=== PATIENT | female | born 2000 | race Caucasian/White ===

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

== ENCOUNTER → 2018-05-10 | Outpatient (CLI) | payer BC ==
[2018-05-10 13:50] LABS: BASO # 0.1 10^3/uL (0.0-0.2); BASO % 0.8 % (0.0-1.0); EOS # 0.2 10^3/uL (0.0-0.50); EOS % 2.6 % (0.0-3.0); HEMATOCRIT 41.3 % (36.0-47.0); HEMOGLOBIN 14.2 g/dl (12.0-15.5); LYMPH # 2.2 10^3/uL (1.5-6.5); LYMPH % 23.7 % (24.0-44.0); MEAN CORPUSCULAR HEMOGLOBIN 29.6 pg (27.0-33.0); MEAN CORPUSCULAR HGB CONC 34.4 g/dl (32.0-36.5); MONO # 0.8 10^3/uL (0.0-0.8); MONO % 8.5 % (0.0-5.0); NEUTROPHILS # 5.8 10^3/uL (1.8-7.7); PLATELET COUNT, AUTOMATED 247 10^3/uL (150-450); WHITE BLOOD COUNT 9.1 10^3/uL (4.0-10.0)
[2018-05-10 14:42] LABS: HIV 1&2 SCREEN CENTAUR NEGATIVE (NEGATIVE); RUBELLA IgG QUALITATIVE IMMUNE (IMMUNE)
[2018-05-10 15:19] LABS: CHLAMYDIA DNA AMPLIFICATION NEGATIVE (NEGATIVE); GC DNA AMPLIFICATION NEGATIVE (NEGATIVE)
== END ==
LOC: M SMT 09:28
PROVIDERS: ATTEND Advanced Practice Midwife
DX: Z34.01 Encounter for supervision of normal first pregnancy, first trimester (principal); Z36.89 Encounter for other specified antenatal screening

== ENCOUNTER 2018-05-22 19:27 | Emergency (ER) | payer BC, OTHER ==
[~2018-05-22] VITALS: Ht 157.5 cm; Wt 50.0 kg
[2018-05-22 22:37] LABS: BASO # 0.1 10^3/uL (0.0-0.2); BASO % 0.7 % (0.0-1.0); EOS # 0.1 10^3/uL (0.0-0.50); EOS % 0.8 % (0.0-3.0); HEMATOCRIT 39.6 % (36.0-47.0); HEMOGLOBIN 14.3 g/dl (12.0-15.5); LYMPH # 1.6 10^3/uL (1.5-6.5); LYMPH % 18.7 % (24.0-44.0); MEAN CORPUSCULAR HEMOGLOBIN 30.2 pg (27.0-33.0); MEAN CORPUSCULAR HGB CONC 36.1 g/dl (32.0-36.5); MEAN CORPUSCULAR VOLUME 83.5 fl (80.0-96.0); MONO # 0.6 10^3/uL (0.0-0.8); MONO % 6.6 % (0.0-5.0); NEUTROPHILS # 6.4 10^3/uL (1.8-7.7); PLATELET COUNT, AUTOMATED 192 10^3/uL (150-450); RED BLOOD COUNT 4.74 10^6/uL (4.00-5.40); WHITE BLOOD COUNT 8.8 10^3/uL (4.0-10.0)
[2018-05-22 23:07] LABS: INFLUENZA A AMPLIFICATION NEGATIVE (NEGATIVE); INFLUENZA B AMPLIFICATION NEGATIVE (NEGATIVE)
[2018-05-22 23:35] LABS: ALBUMIN 3.9 GM/DL (3.2-5.2); ALT/SGPT 14 U/L (12-78); BILIRUBIN,DIRECT 0.3 MG/DL (0.0-0.2); BILIRUBIN,TOTAL 0.8 MG/DL (0.2-1.0); BLOOD UREA NITROGEN 6 MG/DL (7-18); CARBON DIOXIDE LEVEL 20 MEQ/L (21-32); CHLORIDE LEVEL 107 MEQ/L (98-107); CREATININE FOR GFR 0.55 MG/DL (0.55-1.30); GLUCOSE, FASTING 72 MG/DL (70-100); POTASSIUM SERUM 3.4 MEQ/L (3.5-5.1); SODIUM LEVEL 138 MEQ/L (136-145); THYROID STIMULATING HORMONE 0.175 uIU/ML (0.463-3.98); TOTAL PROTEIN 6.8 GM/DL (6.4-8.2)
[2018-05-23 01:59] LABS: FREE T4 1.76 NG/DL (0.78-1.33)
[2018-05-23 04:34] VITALS: BP 125/79
[2018-05-23 05:35] LABS: FREE T3 2.9 PG/ML (2.9-4.5)
--- NOTE | 2018-05-23 22:02 | ECGEPIP ---
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
[2018-05-24 10:24] LABS: THYROID PEROXIDASE ANTIBODY 66.2 U/ML (<60.0)
== END 2018-05-23 04:43 | disposition home or self-care (01) ==
LOC: M ED 19:27
DX: O99.89 Other specified diseases and conditions complicating pregnancy, childbirth and the puerperium (principal); E05.90 Thyrotoxicosis, unspecified without thyrotoxic crisis or storm; R00.0 Tachycardia, unspecified; Z3A.10 10 weeks gestation of pregnancy; Z88.0 Allergy status to penicillin

== ENCOUNTER 2018-09-29 07:22 | Emergency (ER) | payer BC ==
[~2018-09-29] VITALS: Ht 157.5 cm; Wt 59.0 kg
[2018-09-29] MEDS ORDERED: ZOFR4TAB16 PO (07:42)
[2018-09-29 09:42] LABS: BASO # 0.1 10^3/uL (0.0-0.2); BASO % 0.5 % (0.0-1.0); EOS # 0.1 10^3/uL (0.0-0.50); EOS % 1.3 % (0.0-3.0); HEMATOCRIT 36.7 % (36.0-47.0); HEMOGLOBIN 12.9 g/dl (12.0-15.5); LYMPH # 1.8 10^3/uL (1.5-6.5); LYMPH % 16.5 % (24.0-44.0); MEAN CORPUSCULAR HEMOGLOBIN 31.4 pg (27.0-33.0); MEAN CORPUSCULAR HGB CONC 35.1 g/dl (32.0-36.5); MEAN CORPUSCULAR VOLUME 89.3 fl (80.0-96.0); MONO # 0.9 10^3/uL (0.0-0.8); MONO % 8.1 % (0.0-5.0); NEUTROPHILS # 7.8 10^3/uL (1.8-7.7); NEUTROPHILS % 72.7 % (36.0-66.0); PLATELET COUNT, AUTOMATED 233 10^3/uL (150-450); RED BLOOD COUNT 4.11 10^6/uL (4.00-5.40); WHITE BLOOD COUNT 10.7 10^3/uL (4.0-10.0)
[2018-09-29] MEDS ORDERED: NS 1,000 ML IV ONE (09:45)
[2018-09-29 10:21] LABS: BLOOD UREA NITROGEN 7 MG/DL (7-18); CALCIUM LEVEL 8.6 MG/DL (8.5-10.1); CARBON DIOXIDE LEVEL 24 MEQ/L (21-32); CHLORIDE LEVEL 109 MEQ/L (98-107); CREATININE FOR GFR 0.52 MG/DL (0.55-1.30); FREE T4 1.17 NG/DL (0.78-1.33); GLUCOSE, FASTING 75 MG/DL (70-100); POTASSIUM SERUM 3.8 MEQ/L (3.5-5.1); SODIUM LEVEL 140 MEQ/L (136-145)
[2018-09-29 11:15] VITALS: BP 120/66
[2018-09-29] MEDS ORDERED: KEFL500C17 PO (11:57)
--- NOTE | 2018-09-30 08:02 | ECGEPIP ---
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
== END 2018-09-29 12:05 | disposition home or self-care (01) ==
LOC: M ED 07:22
DX: O99.89 Other specified diseases and conditions complicating pregnancy, childbirth and the puerperium (principal); R20.2 Paresthesia of skin; R82.71 Bacteriuria; Z88.0 Allergy status to penicillin; Z3A.29 29 weeks gestation of pregnancy

== ENCOUNTER → 2018-10-04 | Outpatient (CLI) | payer BC ==
[~2018-10-04] MED LIST: KEFL500C17 PO; ZOFR4TAB16 PO
[2018-10-04 14:54] LABS: FREE T4 1.05 NG/DL (0.78-1.33); THYROID STIMULATING HORMONE 1.32 uIU/ML (0.463-3.98)
[2018-10-04 14:58] LABS: HEMATOCRIT 35.7 % (36.0-47.0); MEAN CORPUSCULAR HEMOGLOBIN 29.6 pg (27.0-33.0); MEAN CORPUSCULAR HGB CONC 33.6 g/dl (32.0-36.5); MEAN CORPUSCULAR VOLUME 88.1 fl (80.0-96.0); PLATELET COUNT, AUTOMATED 254 10^3/uL (150-450); RED BLOOD COUNT 4.05 10^6/uL (4.00-5.40); WHITE BLOOD COUNT 9.9 10^3/uL (4.0-10.0)
== END ==
LOC: M SMT 10:32
PROVIDERS: ATTEND Obstetrics & Gynecology
DX: Z34.02 Encounter for supervision of normal first pregnancy, second trimester (principal); Z3A.00 Weeks of gestation of pregnancy not specified

== ENCOUNTER → 2018-11-23 | Outpatient (REF) | payer BC | LOC: M LAB REF 16:44 | PROVIDERS: ATTEND Obstetrics & Gynecology | DX: Z36.85 Encounter for antenatal screening for Streptococcus B (principal) ==

== ENCOUNTER 2018-12-08 20:56 | Outpatient (CLI) | payer BC ==
[~2018-12-08] VITALS: Ht 157.5 cm; Wt 68.8 kg
[2018-12-08 21:07] VITALS: BP 131/86
--- NOTE | 2018-12-08 21:31 | IPNPDOC ---
Text Note Date of Service The patient was seen on 12/08/18. NOTE Outpatient 18 yo G1 STEFANIE 12/15/18 presents @ 39 wks with complaints of pelvic pressure. Denies regular UC. Reports light spotting. Cat I tracing Irregular UC SVE 3, unchanged from yesterday in office Reassured. Discharged home. Routine precautions. Keep appt next week Miesha Hendrix CNM Dec 08, 2018 21:31
== END 2018-12-08 21:35 | disposition home or self-care (01) ==
LOC: M LDO 20:56
PROVIDERS: ATTEND Advanced Practice Midwife
DX: O26.853 Spotting complicating pregnancy, third trimester (principal); O26.893 Other specified pregnancy related conditions, third trimester; R10.30 Lower abdominal pain, unspecified; Z3A.39 39 weeks gestation of pregnancy
CPT/HCPCS: 59025; G0378; G0463

== ENCOUNTER 2018-12-20 14:59 | Inpatient (IN) | payer BC ==
[2018-12-20] VITALS (28 sets, daily range): BP systolic 113–163; BP diastolic 57–91
[~2018-12-20] VITALS: Ht 157.5 cm; Wt 68.8 kg
[2018-12-20] MEDS ORDERED: LACTATED RINGER'S 1000 ML IV STA (16:32)
[2018-12-20] MEDS ORDERED: BUTORPHANOL 2 MG/ML INJ (J0595) IV ONE (16:45)
[2018-12-20] MEDS ORDERED: PROMETHAZINE INJ 25 MG/ML VIAL (J2550) IV ONE (16:45)
--- NOTE | 2018-12-20 17:04 | HPE ---
DATE OF ADMISSION: 12/20/2018 Skylar is a 18-year-old 1 para 0 at 40-5/7 weeks gestation, EDC of 12/15/2018 based on last normal menstrual period confirmed by first trimester ultrasound. She presents to labor and delivery today with complaint of painful contractions that started approximately at 0200 and have progressively become closer together and much more uncomfortable. She denies any vaginal bleeding and leakage of fluid. The fetus has been active. The care was initiated at [facility] in the first trimester. course has been uncomplicated. OBSTETRIC HISTORY: Primigravida. OBSTETRIC LABS: A+, antibody screen negative, rubella immune, VDRL nonreactive. Urine culture no growth. Hep B surface antigen negative, HIV negative. Hep C antibody nonreactive. Gonorrhea and chlamydia negative. She did not have genetic serum screening labs drawn. Gestational diabetic screening normal at 122 and her GBS is negative. PAST MEDICAL HISTORY: No chronic medical conditions. PAST SURGICAL HISTORY: Tympanostomy FAMILY HISTORY: Diabetes. Asthma. SOCIAL HISTORY: The patient is single. The father of the baby is at bedside and supportive. She is a nonsmoker. Denies alcohol and drug use. No history of any sexually transmitted infections and denies history of abuse physical, sexual and emotional. ALLERGIES: Amoxicillin. CURRENT MEDICATIONS: vitamin and Zofran as needed. OBJECTIVE: Temperature 93, pulse 83, respirations 18, BP is 121/68. She is alert and oriented times three. She is tense and scowling with her contractions. heart rate is 130 with moderate variability, positive accelerations. There is an isolated variable deceleration and occasional rate decelerations. Contractions were every 4-7 minutes. They do palpate moderate to her abdomen is gravid, cephalic presentation. Estimated weight 7-1/2 pounds. Sterile vaginal exam 2-3 cm dilated 90% effaced, minus two station. There is no show with the exam. ASSESSMENT: Intrauterine at 40 and 5/7 weeks labor. PLAN: Admit the patient to labor and labor and delivery. Routine labs of bed ad lazara with IV fluid bolus at this time and saline lock. The patient is requesting IV pain medications for therapeutic rest at this time. If labor stones will augment her labor with IV Pitocin. The patient and planning an epidural when she is more uncomfortable. I did review risks, benefits, and alternatives. The patient and her partner have had their questions answered. She has been verbally consented for emergency surgery and blood products if necessary.
[2018-12-20 17:05] LABS: HEMOGLOBIN 12.4 g/dl (12.0-15.5); MEAN CORPUSCULAR HEMOGLOBIN 28.7 pg (27.0-33.0); MEAN CORPUSCULAR HGB CONC 33.5 g/dl (32.0-36.5); MEAN CORPUSCULAR VOLUME 85.6 fl (80.0-96.0); PLATELET COUNT, AUTOMATED 212 10^3/uL (150-450); RED BLOOD COUNT 4.32 10^6/uL (4.00-5.40); WHITE BLOOD COUNT 12.1 10^3/uL (4.0-10.0)
[2018-12-20] MEDS ORDERED: LR 1,000 ML IV SCH (19:55)
[2018-12-20] MEDS ORDERED: OXYTOCIN DRIP 30 UNITS in IV 1 EA IV SCH (20:00)
[2018-12-20] MEDS ORDERED: OXYTOCIN 30 UNITS IN 0.9% NaCl 500ML IV BAG (J2590) As Ordered ONE (20:01)
[2018-12-20] MEDS ORDERED: FENTANYL 2MCG/ML ROPIVACAINE 0.2% IN 0.9% NACL 100ML IVBAG As Ordered ONE (21:15)
[2018-12-20] MEDS ORDERED: ePHEDrine SULFATE 25 MG/5 ML(5MG/ML) SYRINGE As Ordered ONE (23:04)
[2018-12-20] MEDS ORDERED: REFRIGERATOR IV KEYS XX PRN (23:15)
[2018-12-20] MEDS ORDERED: NALOXONE INJ 0.4 MG/1 ML VIAL (J2310) IV PRN (23:15)
[2018-12-20] MEDS ORDERED: EPIDURAL COMMENT XX SCH (23:15)
[2018-12-20] MEDS ORDERED: diphenhydrAMINE INJ 50MG/ML VIAL (J1200) IV PRN (23:15)
[2018-12-20] MEDS ORDERED: FENTANYL/ROPIVACAINE/NACL BAG 100 ML EPIDURAL SCH (23:15)
[2018-12-20] MEDS ORDERED: ONDANSETRON 4MG/2ML VIAL (J2405) IV PRN (23:15)
[2018-12-20] MEDS ORDERED: ePHEDrine SULFATE 25 MG/5 ML(5MG/ML) SYRINGE IV PRN (23:15)
[2018-12-20] MEDS ORDERED: EPIDURAL/PCA KEYS XX PRN (23:15)
[2018-12-21] VITALS (8 sets, daily range): BP systolic 124–141; BP diastolic 67–88
[2018-12-21] MEDS ORDERED: OXYTOCIN DRIP 30 UNITS in IV 1 EA IV SCH (01:29)
[2018-12-21] MEDS ORDERED: IBUPROFEN 600 MG TAB PO PRN (01:30)
[2018-12-21] MEDS ORDERED: DIBUCAINE 1% OINTMENT 30GM TOP PRN (01:30)
[2018-12-21] MEDS ORDERED: RHOGAM 300 MCG (1500 IU) INJ (J2790) IM SCH (01:30)
[2018-12-21] MEDS ORDERED: ACETAMINOPHEN 500 MG TAB PO PRN (01:30)
[2018-12-21] MEDS ORDERED: METHYLERGONOVINE MALEATE 0.2 MG TAB PO PRN (01:30)
[2018-12-21] MEDS ORDERED: ACETAMINOPHEN TAB 650MG DOSE (2X325MG) PO PRN (01:30)
[2018-12-21] MEDS ORDERED: MEASLES,MUMPS,RUBELLA VACCINE INJ (MMR-II) (90707) SC SCH (01:30)
[2018-12-21] MEDS ORDERED: DOCUSATE SODIUM 100 MG CAP PO PRN (01:30)
[2018-12-21] MEDS: IBUPROFEN 800 MG TAB PO PRN ×2 (03:22→21:12)
--- NOTE | 2018-12-21 06:49 | DN ---
DATE: 12/21/2018 Skylar is a 18-year-old, 1, para 1-0-0-1 now, who was admitted to labor and delivery in active labor. She utilized IV pain medications and an epidural for her labor coping. She did have IV Pitocin to augment her labor. She had spontaneous rupture of membranes for clear fluid at 2310. She was fully dilated at 2351. She pushed to a normal spontaneous vaginal delivery of a live female in occiput anterior (OA) position with restitution to left occiput transverse (LOT) position at 0022. There was no nuchal cord. The shoulders delivered spontaneously and the corpus immediately followed. The was placed on maternal abdomen crying and active. Her mouth and nares were bulb suctioned. The cord was clamped times two once the pulsations ceased and cut by the father of the baby under my direction. Cord blood was obtained. Spontaneous expulsion of an intact placenta with three-vessel cord by Quintanilla mechanism was at 0026. Uterine hemostasis was achieved with IV Pitocin rapid infusion and uterine fundal massage. Estimated blood loss 400 mL. Perineum and vagina inspected and noted to have a second-degree midline vaginal laceration as well as bilateral labial lacerations. The lacerations were repaired under epidural anesthesia with #3-0 Rapide in the usual fashion. The female weighed 6 pounds 4 ounces, 2840 grams, Apgars 9 and 9. Mom is going to bottle feed her daughter and the family have named her Lizzie. At the close of delivery, lap counts, needle counts and instrument counts were correct and verified.
[2018-12-21] MEDS ORDERED: ADACEL/BOOSTRIX VACCINE (DIPHTH/PERTUSS/ACELL/TETANUS)0.5ML SYR (90715) IM ONE (09:00)
[2018-12-21] MEDS: PRENATAL VITAMINS CHEWABLE TABLET PO SCH (11:59)
[2018-12-22 06:00] VITALS: BP 118/76
[2018-12-22] MEDS: PRENATAL VITAMINS CHEWABLE TABLET PO SCH (09:58)
== END 2018-12-22 18:40 | disposition home or self-care (01) | DRG 560 ==
LOC: M LDO 14:59 → M LDI 16:29 → M OBS 12-21 03:14
PROVIDERS: ADMIT Advanced Practice Midwife; ATTEND Advanced Practice Midwife
PROC: 10E0XZZ Delivery of Products of Conception, External Approach (ICD-10-PCS; principal; 2018-12-21)
PROC: 0HQ9XZZ Repair Perineum Skin, External Approach (ICD-10-PCS; 2018-12-21)
DX: O48.0 Post-term pregnancy (principal); O70.0 First degree perineal laceration during delivery; Z37.0 Single live birth; Z3A.40 40 weeks gestation of pregnancy

== ENCOUNTER → 2019-11-08 | Outpatient (CLI) | payer BC, OTHER, SELFPAY | LOC: M LAB 15:30 | PROVIDERS: ATTEND Obstetrics & Gynecology | DX: Z32.00 Encounter for pregnancy test, result unknown (principal) ==

== ENCOUNTER → 2020-03-07 | Outpatient (REF) | payer OTHER ==
[2020-03-07 17:24] LABS: HEMATOCRIT 41.9 % (36.0-47.0); HEMOGLOBIN 13.7 g/dl (12.0-15.5); MEAN CORPUSCULAR HEMOGLOBIN 28.1 pg (27.0-33.0); MEAN CORPUSCULAR HGB CONC 32.7 g/dl (32.0-36.5); MEAN CORPUSCULAR VOLUME 85.9 fl (80.0-96.0); PLATELET COUNT, AUTOMATED 266 10^3/uL (150-450); RED BLOOD COUNT 4.88 10^6/uL (4.00-5.40); WHITE BLOOD COUNT 8.5 10^3/uL (4.0-10.0)
[2020-03-07 18:23] LABS: HEPATITIS C VIRUS ABY INDEX < 0.0 INDEX (<0.8); HIV 1&2 SCREEN CENTAUR NEGATIVE (NEGATIVE)
[2020-03-07 19:58] LABS: CHLAMYDIA DNA AMPLIFICATION NEGATIVE (NEGATIVE); GC DNA AMPLIFICATION NEGATIVE (NEGATIVE)
== END ==
LOC: M PLALAB 15:23
PROVIDERS: ATTEND Advanced Practice Midwife
DX: Z34.81 Encounter for supervision of other normal pregnancy, first trimester (principal)

== ENCOUNTER → 2020-05-23 | Outpatient (CLI) | payer OTHER ==
--- NOTE | 2020-05-23 16:23 | REP ---
INDICATION: ANATOMY. COMPARISON: None. TECHNIQUE: Multiple sonographic images of the gravid uterus. FINDINGS: There is a single intrauterine gestation in a breech presentation. The placenta is posterior, grade 0 maturity with no previa. The cervix measures 3.2 cm. The umbilical cord inserts centrally on the placenta. There is a three-vessel cord. The cord insertion is unremarkable. The heart rate is 146 beats per minute. Subjectively the amniotic fluid volume appears normal. The ultrasound gestational age by today's measurements is 20 weeks 0 days with an STEFANIE of 10/10/2020. The LMP is unknown. weight is 343 g that corresponds to 0 lb, 12 oz. This is the 53rd percentile for 20 weeks 1 day. The following anatomic structures are identified and are unremarkable: Cranium, cavum septum pellucidum, falx, intracranial ventricles, choroid plexus, cerebellum, cisterna magna, nuchal fold, facial profile, upper lip, cardiac right ventricular outflow tract, diaphragm, stomach, abdominal wall, right left kidneys, bladder, spine, right and left upper extremities, right left lower extremities and 3 vessel cord. Suboptimally demonstrated because of position are cardiac rhythm, four-chamber view of the heart and cardiac left ventricular outflow tract. A follow-up study dedicated to the structures might be considered. IMPRESSION: dating, weight and anatomy as discussed above. A follow-up study dedicated to the structures not optimally demonstrated today might be considered. <Electronically signed by Luis Manuel Lowery > 05/23/20 [id number]
== END ==
LOC: M WHC 14:23
PROVIDERS: ATTEND Advanced Practice Midwife
DX: Z34.92 Encounter for supervision of normal pregnancy, unspecified, second trimester (principal); Z3A.20 20 weeks gestation of pregnancy

== ENCOUNTER → 2020-07-03 | Outpatient (REF) | payer OTHER ==
[2020-07-03 14:01] LABS: HEMATOCRIT 38.6 % (36.0-47.0); HEMOGLOBIN 12.5 g/dl (12.0-15.5); MEAN CORPUSCULAR HEMOGLOBIN 29.1 pg (27.0-33.0); MEAN CORPUSCULAR HGB CONC 32.4 g/dl (32.0-36.5); MEAN CORPUSCULAR VOLUME 89.8 fl (80.0-96.0); PLATELET COUNT, AUTOMATED 265 10^3/uL (150-450)
== END ==
LOC: M PLALAB 09:47
PROVIDERS: ATTEND Advanced Practice Midwife
DX: Z34.92 Encounter for supervision of normal pregnancy, unspecified, second trimester (principal); Z3A.00 Weeks of gestation of pregnancy not specified

== ENCOUNTER → 2020-09-08 | Outpatient (REF) | payer OTHER | LOC: M SFHCWAGY 16:55 | PROVIDERS: ATTEND Advanced Practice Midwife | DX: Z34.93 Encounter for supervision of normal pregnancy, unspecified, third trimester (principal) ==

== ENCOUNTER 2020-10-07 02:51 | Inpatient (IN) | payer OTHER ==
[2020-10-07] VITALS (33 sets, daily range): BP systolic 98–149; BP diastolic 54–81
[~2020-10-07] VITALS: Ht 157.5 cm; Wt 74.1 kg
[2020-10-07] MEDS ORDERED: LACTATED RINGER'S 1000 ML IV STA (03:18)
[2020-10-07] MEDS ORDERED: OXYTOCIN INJ 10 UNITS/ML VIAL (J2590) IM PRN (03:20)
[2020-10-07] MEDS ORDERED: LR 1,000 ML IV SCH (03:20)
[2020-10-07] MEDS ORDERED: OXYTOCIN DRIP 30 UNITS in IV 1 EA IV SCH (03:20)
[2020-10-07] MEDS ORDERED: OXYTOCIN DRIP 30 UNITS in IV 1 EA IV PRN ×4 (03:20)
[2020-10-07] MEDS ORDERED: METHYLERGONOVINE MALEATE 0.2 MG/ML VIAL (J2210) IM PRN (03:20)
[2020-10-07] MEDS ORDERED: LIDOCAINE 1% MDV 20ML VIAL INFIL PRN (03:20)
[2020-10-07 03:42] LABS: HEMATOCRIT 35.9 % (36.0-47.0); HEMOGLOBIN 11.7 g/dl (12.0-15.5); MEAN CORPUSCULAR HEMOGLOBIN 26.2 pg (27.0-33.0); MEAN CORPUSCULAR HGB CONC 32.6 g/dl (32.0-36.5); MEAN CORPUSCULAR VOLUME 80.3 fl (80.0-96.0); PLATELET COUNT, AUTOMATED 265 10^3/uL (150-450); RED BLOOD COUNT 4.47 10^6/uL (4.00-5.40); WHITE BLOOD COUNT 7.7 10^3/uL (4.0-10.0)
[2020-10-07] MEDS ORDERED: FENTANYL 2MCG/ML ROPIVACAINE 0.2% IN 0.9% NACL 100ML IVBAG As Ordered ONE (04:30)
[2020-10-07] MEDS ORDERED: NALOXONE INJ 0.4MG/1ML VIAL (J2310 PER 1MG) IV PRN (05:40)
[2020-10-07] MEDS ORDERED: EPIDURAL COMMENT XX SCH (05:40)
[2020-10-07] MEDS ORDERED: REFRIGERATOR IV KEYS XX PRN (05:40)
[2020-10-07] MEDS ORDERED: LACTATED RINGER'S 1000 ML IV PRN (05:40)
[2020-10-07] MEDS ORDERED: EPIDURAL/PCA KEYS XX PRN (05:40)
[2020-10-07] MEDS ORDERED: ONDANSETRON 4MG/2ML VIAL IV PRN (05:40)
[2020-10-07] MEDS ORDERED: FENTANYL/ROPIVACAINE/NACL BAG 100 ML EPIDURAL SCH (05:40)
[2020-10-07] MEDS ORDERED: diphenhydrAMINE 50MG/ML VIAL (J1200) IV PRN (05:40)
[2020-10-07] MEDS: ePHEDrine SULFATE 25 MG/5 ML(5MG/ML) SYRINGE IV PRN ×3 (05:44→06:24)
[2020-10-07 09:19] LABS: CORD GAS ABE A -8.3; CORD GAS HCO3 A 22.6 MEQ/L; CORD GAS O2 SAT A 51.9 %; CORD GAS PCO2 A 67.9 mmHg; CORD GAS PH A 7.141 UNITS; CORD GAS SBC A 16.8 MEQ/L; CORD GAS TCO2 A 24.7 MEQ/L
[2020-10-07 09:20] LABS: CORD GAS ABE V -3.7; CORD GAS HCO3 V 24.5 MEQ/L; CORD GAS PCO2 V 55.2 mmHg; CORD GAS PH V 7.265 UNITS; CORD GAS PO2 V 21.2 mmHg; CORD GAS SBC V 19.9 MEQ/L; CORD GAS TCO2 V 26.2 MEQ/L
[2020-10-07] MEDS ORDERED: ANUSOL HC CREAM 30GM TOP PRN (09:25)
[2020-10-07] MEDS ORDERED: METHYLERGONOVINE MALEATE 0.2 MG TAB PO PRN (09:25)
[2020-10-07] MEDS ORDERED: IBUPROFEN 800 MG TAB PO PRN (09:25)
[2020-10-07] MEDS ORDERED: DIBUCAINE 1% OINTMENT 30GM TOP PRN (09:25)
[2020-10-07] MEDS ORDERED: MEASLES,MUMPS,RUBELLA VACCINE INJ (MMR-II) (90707) SC SCH (09:25)
[2020-10-07] MEDS ORDERED: ACETAMINOPHEN TAB 650MG DOSE (2X325MG) PO PRN (09:25)
[2020-10-07] MEDS ORDERED: RHOGAM 300 MCG (1500 IU) INJ (J2790) IM SCH (09:25)
[2020-10-07] MEDS ORDERED: ACETAMINOPHEN 500 MG TAB PO PRN (09:25)
[2020-10-07] MEDS ORDERED: IBUPROFEN 600MG TAB PO PRN (09:25)
[2020-10-07] MEDS ORDERED: DOCUSATE SODIUM 100MG CAPSULE PO PRN (09:25)
--- NOTE | 2020-10-07 10:21 | HPE ---
HISTORY AND PHYSICAL DATE OF ADMISSION: 10/07/2020 HISTORY: Skylar is a 20-year-old 2, para 1-0-0-1 at 39 and 5/7 weeks' gestation, EDC of 10/09/2020 based on last menstrual period and confirmed by first trimester ultrasound. She presents to labor and delivery today with a report of spontaneous rupture of membranes at approximately 0120. She does report some mild cramping that has started after rupture. She denies vaginal bleeding. She does report continued leakage of fluid and the fetus has been active. care was initiated at [facility] in the first trimester. course has been uncomplicated. OBSTETRIC HISTORY: December 21, 2018, 40 weeks 6 days, a 6 pound 4 ounce female, vaginal delivery, no complications. OBSTETRIC LABS: A+, antibody screen negative, syphilis negative, gonorrhea and chlamydia negative, hepatitis B surface antigen negative, hepatitis C antibody nonreactive. HIV nonreactive. Rubella immune. Gestational diabetic screening 87. Urine culture and sensitivity: No growth. Group B strep culture negative. PAST MEDICAL HISTORY: Noncontributory. PAST SURGICAL HISTORY: Tympanostomy. FAMILY HISTORY: Unknown. The patient is adopted. SOCIAL HISTORY: The patient is single. However, her partner is at bedside and he is supportive. She is a nonsmoker, denies alcohol and drug use. No history of any sexually transmitted infections and she denies history of abuse, physical, sexual, and emotional. ALLERGIES: AMOXICILLIN which causes a rash. CURRENT MEDICATIONS: vitamin. OBJECTIVE: Temperature 98.4, pulse 57, respirations 18, blood pressure 122/61. General: She is alert and oriented times three. She does not appear in any distress. The heart rate is 140 with moderate variability, no decelerations observed. There is a pattern of occasional contractions. Her abdomen is gravid, cephalic presentation. Estimated weight 6-1/2 to 7 pounds. Sterile speculum exam: Positive pooling. Positive Nitrazine. Sterile vaginal exam: 3-4 dilated, 75% effaced, -2 station. ASSESSMENT: Intrauterine at 39 and 5/7 weeks. heart rate is category 1. Premature rupture of membranes. PLAN: Admit the patient to labor and delivery. Routine laboratories. Out of bed ad lazara. Clear liquid diet at this time. I plan to start IV Pitocin for labor induction. I did review risks, benefits, and alternatives with the patient and her questions have been answered. She has been verbally consented for emergency surgery and blood products if they are necessary. I do anticipate active labor and a spontaneous vaginal delivery. The patient is desiring an epidural when she is uncomfortable with her labor.
--- NOTE | 2020-10-07 11:41 | DN ---
DELIVERY NOTE DATE OF DELIVERY: 10/07/2020 TIME OF : 09 GENDER: Male APGARS: 9 and 9 LACERATIONS: Second degree laceration ANESTHESIA: ESTIMATED BLOOD LOSS: 200 mL COUNTS: Correct and verified DESCRIPTION OF DELIVERY: Skylar is a 20-year-old 2, para 2-0-0-2 now, who was admitted to labor and delivery in active labor. She did utilize an epidural for her labor coping. She reached complete dilation at 0826. She pushed to a normal spontaneous vaginal delivery of a live male infant in OA position with restitution to ROT position at 0901. There was a left compound hand. The shoulders delivered spontaneously and the corpus immediately followed. The 's mouth and nares were bulb suctioned and he was placed on the maternal abdomen crying and active. The cord was clamped x2 and cut by the father of the baby under my direction. Cord gases were obtained. Arterial cord pH 7.141 with a base excess of -8.3. Venous cord pH 7.265 with a base excess of -3.7. There was spontaneous expulsion of an intact placenta with three-vessel cord by Quintanilla mechanism at 0906. Uterine hemostasis was achieved with I.V. Pitocin rapid infusion and uterine fundal massage. Estimated blood loss was 200 mL. Perineum and vagina inspected and noted to have a second degree midline laceration. Laceration repaired with 3-0 Vicryl Rapide in the usual fashion. [place] male weighed 3350 grams, 7 pounds 6 ounces. Apgars were 9 and 9. Family have named their son Stephan. Mom is going to bottle feed her son. At the close of delivery, lap counts, instrument counts and needle counts were correct and verified.
[2020-10-07] MEDS: PRENATAL VITAMINS CHEWABLE TABLET PO SCH (16:48)
[2020-10-08 06:00] VITALS: BP 119/76
[2020-10-08] MEDS: PRENATAL VITAMINS CHEWABLE TABLET PO SCH (08:38)
[2020-10-08] MEDS ORDERED: PRENATAL VITAMINS CHEWABLE TABLET PO SCH (09:00)
== END 2020-10-08 17:25 | disposition home or self-care (01) | DRG 560 ==
LOC: M LDO 02:51 → M LDI 03:15 → M OBS 12:58
PROVIDERS: ADMIT Advanced Practice Midwife; ATTEND Advanced Practice Midwife
PROC: 10E0XZZ Delivery of Products of Conception, External Approach (ICD-10-PCS; principal; 2020-10-07)
PROC: 0KQM0ZZ Repair Perineum Muscle, Open Approach (ICD-10-PCS; 2020-10-07)
DX: O42.02 Full-term premature rupture of membranes, onset of labor within 24 hours of rupture (principal); Z37.0 Single live birth; Z3A.39 39 weeks gestation of pregnancy; O32.6XX0 Maternal care for compound presentation, not applicable or unspecified; O70.1 Second degree perineal laceration during delivery

== ENCOUNTER → 2021-02-11 | Outpatient (CLI) | payer OTHER ==
--- NOTE | 2021-02-11 16:39 | REP ---
INDICATION: SWELLING LUMP NECK. COMPARISON: None. TECHNIQUE: Real-time sonographic evaluation of the bilateral supraclavicular area and posterior midline neck with Doppler. FINDINGS: No cystic or solid masses are identified sonographically. IMPRESSION: Negative exam. Contrast-enhanced CT is recommended. <Electronically signed by Wally Escalante > 02/11/21 [id number]
== END ==
LOC: M RAD 16:12
PROVIDERS: ATTEND Pediatrics
DX: R22.1 Localized swelling, mass and lump, neck (principal)

== ENCOUNTER → 2021-04-03 | Outpatient (CLI) | payer OTHER ==
[~2021-04-03] MED LIST changes: +ISOVUE-370 76% 100ML VIAL ONE
== END ==
LOC: M PLAIMG 10:53
PROVIDERS: ATTEND Pediatrics
DX: R22.1 Localized swelling, mass and lump, neck (principal)

== ENCOUNTER 2021-04-14 09:56 | Emergency (ER) | payer OTHER ==
[~2021-04-14] VITALS: Ht 157.5 cm; Wt 65.9 kg
[~2021-04-14 09:56] MED LIST changes: -ISOVUE-370 76% 100ML VIAL ONE
[2021-04-14 10:52] LABS: BASO % 0.5 % (0.0-1.0); EOS # 0.1 10^3/uL (0.0-0.5); EOS % 1.8 % (0.0-3.0); HEMATOCRIT 40.2 % (36.0-47.0); HEMOGLOBIN 13.8 g/dl (12.0-15.5); LYMPH # 1.8 10^3/uL (1.5-5.0); LYMPH % 24.4 % (24.0-44.0); MEAN CORPUSCULAR HEMOGLOBIN 28.1 pg (27.0-33.0); MEAN CORPUSCULAR HGB CONC 34.3 g/dl (32.0-36.5); MEAN CORPUSCULAR VOLUME 81.9 fl (80.0-96.0); MONO # 0.6 10^3/uL (0.0-0.8); MONO % 8.2 % (2.0-8.0); NEUTROPHILS # 4.8 10^3/uL (1.5-8.5); NEUTROPHILS % 64.8 % (36.0-66.0); PLATELET COUNT, AUTOMATED 253 10^3/uL (150-450); RED BLOOD COUNT 4.91 10^6/uL (4.00-5.40); WHITE BLOOD COUNT 7.4 10^3/uL (4.0-10.0)
[2021-04-14 11:13] LABS: ABG BASE EXCESS 0.1 (-2.0-2.0); ABG HCO3 20.2 MEQ/L (22.0-26.0); ABG O2 SATURATION 99.1 % (95.0-99.0); ABG PARTIAL PRESSURE CO2 22.7 mmHg (35.0-45.0); ABG PARTIAL PRESSURE O2 132.2 mmHg (75.0-100.0); ABG STANDARD HCO3 24.7 MEQ/L (22.0-26.0); ABG TOTAL CO2 20.9 MEQ/L (22.0-29.0); ABG pH (ARTERIAL) 7.568 UNITS (7.350-7.450)
[2021-04-14] MEDS ORDERED: METOCLOPRAMIDE INJ 10MG/2ML VIAL (J2765 PER 1) IV ONE (11:15)
[2021-04-14] MEDS ORDERED: KETOROLAC 30 MG/ML 1ML VIAL IV ONE (11:15)
[2021-04-14 13:22] VITALS: BP 115/66
== END 2021-04-14 13:27 | disposition home or self-care (01) ==
LOC: M ED 09:56
DX: G43.909 Migraine, unspecified, not intractable, without status migrainosus (principal); F43.0 Acute stress reaction; R94.31 Abnormal electrocardiogram [ECG] [EKG]; Z88.0 Allergy status to penicillin
CPT/HCPCS: 36600; 70450; 80047; 82803; 84702; 85025; 93005; 93041; 96374; 99285; J1885; J2765

== ENCOUNTER → 2021-12-02 | Outpatient (REF) | payer BC, OTHER | LOC: M SFHCDERM 12:33 | PROVIDERS: ATTEND Nurse Practitioner Family | DX: D23.5 Other benign neoplasm of skin of trunk (principal) ==

== ENCOUNTER → 2022-03-29 | Outpatient (REF) | payer BC, OTHER | LOC: M SFHCWAGY 18:10 | PROVIDERS: ATTEND Advanced Practice Midwife | DX: Z12.4 Encounter for screening for malignant neoplasm of cervix (principal); R87.615 Unsatisfactory cytologic smear of cervix ==

== ENCOUNTER → 2022-04-01 | Outpatient (REF) | payer BC, OTHER ==
[2022-04-01 12:55] LABS: HEMATOCRIT 42.7 % (36.0-47.0); HEMOGLOBIN 14.5 g/dl (12.0-15.5); MEAN CORPUSCULAR HEMOGLOBIN 29.8 pg (27.0-33.0); MEAN CORPUSCULAR VOLUME 87.7 fl (80.0-96.0); PLATELET COUNT, AUTOMATED 293 10^3/uL (150-450); RED BLOOD COUNT 4.87 10^6/uL (4.00-5.40)
[2022-04-01 13:39] LABS: ALKALINE PHOSPHATASE 95 U/L (46-116); ALT/SGPT 14 U/L (7.0-40); AST/SGOT 16 U/L (<34); BILIRUBIN,TOTAL 0.5 MG/DL (0.3-1.2); BLOOD UREA NITROGEN 16 MG/DL (9-23); CALCIUM LEVEL 9.1 MG/DL (8.5-10.1); CARBON DIOXIDE LEVEL 27 MMOL/L (20-31); CHLORIDE LEVEL 104 MMOL/L (98-107); CHOLESTEROL LEVEL 141 MG/DL (<200); CHOLESTEROL RISK RATIO 2.86 (<5); CREATININE FOR GFR 0.79 MG/DL (0.55-1.30); GLOMERULAR FILTRATION RATE > 60.0 (>60); GLUCOSE, FASTING 79 MG/DL (60-100); HDL CHOLESTEROL 49.3 MG/DL (>40); LDL CHOLESTEROL 81.9 MG/DL (<100); NON-HDL-C 92 MG/DL; POTASSIUM SERUM 4.1 MMOL/L (3.5-5.1); SODIUM LEVEL 140 MMOL/L (136-145); TOTAL PROTEIN 6.7 G/DL (5.7-8.2); TRIGLYCERIDES LEVEL 49 MG/DL (<150)
== END ==
LOC: M SFHCADAM 12:38
PROVIDERS: ATTEND Nurse Practitioner Family
DX: L70.0 Acne vulgaris (principal)

== ENCOUNTER → 2022-05-17 | Outpatient (REF) | payer BC, OTHER | LOC: M SFHCWAGY 17:37 | PROVIDERS: ATTEND Advanced Practice Midwife | DX: R87.615 Unsatisfactory cytologic smear of cervix (principal) ==

== ENCOUNTER 2022-06-30 15:56 | Emergency (ER) | payer OTHER, BC ==
[~2022-06-30] VITALS: Ht 157.5 cm; Wt 63.6 kg
[2022-06-30 17:59] LABS: BASO # 0.1 10^3/uL (0.0-0.2); BASO % 0.9 % (0.0-1.0); EOS # 0.3 10^3/uL (0.0-0.5); EOS % 4.1 % (0.0-3.0); LYMPH # 2.2 10^3/uL (1.5-5.0); LYMPH % 28.9 % (24.0-44.0); MEAN CORPUSCULAR HEMOGLOBIN 29.6 pg (27.0-33.0); MEAN CORPUSCULAR HGB CONC 34.1 g/dl (32.0-36.5); MONO # 0.5 10^3/uL (0.0-0.8); MONO % 7.1 % (2.0-8.0); NEUTROPHILS # 4.5 10^3/uL (1.5-8.5); NEUTROPHILS % 58.7 % (36.0-66.0); PLATELET COUNT, AUTOMATED 288 10^3/uL (150-450); RED BLOOD COUNT 5.06 10^6/uL (4.00-5.40); WHITE BLOOD COUNT 7.6 10^3/uL (4.0-10.0)
[2022-06-30 18:40] LABS: ALBUMIN 4.2 G/DL (3.2-5.2); ALKALINE PHOSPHATASE 92 U/L (46-116); ALT/SGPT 16 U/L (7.0-40); AST/SGOT 15 U/L (<34); BILIRUBIN,TOTAL 0.3 MG/DL (0.3-1.2); BLOOD UREA NITROGEN 15 MG/DL (9-23); CALCIUM LEVEL 9.5 MG/DL (8.5-10.1); CARBON DIOXIDE LEVEL 27 MMOL/L (20-31); CHLORIDE LEVEL 108 MMOL/L (98-107); GLOMERULAR FILTRATION RATE > 60.0 (>60); GLUCOSE, FASTING 85 MG/DL (60-100); SODIUM LEVEL 139 MMOL/L (136-145)
[2022-06-30 18:47] VITALS: BP 124/81
[2022-06-30 19:38] LABS: HEPATITIS B SURFACE ANTIBODY NEGATIVE (POSITIVE)
[2022-06-30 19:55] LABS: HEPATITIS B SURFACE ANTIGEN NEGATIVE (NEGATIVE)
[2022-06-30 20:03] LABS: HIV SCREEN CENTAUR EXPOSED NEGATIVE (NEGATIVE)
[2022-06-30 20:16] LABS: HEPATITIS C VIRUS ABY INDEX < 0.0 INDEX (<0.8)
[2022-06-30 20:25] LABS: HCG, SERUM QUALITATIVE NEGATIVE (NEGATIVE)
== END 2022-06-30 18:53 | disposition home or self-care (01) ==
LOC: M ED 15:56
DX: Z77.21 Contact with and (suspected) exposure to potentially hazardous body fluids (principal); Y99.0 Civilian activity done for income or pay; Z88.1 Allergy status to other antibiotic agents

== ENCOUNTER → 2022-07-01 | Outpatient (REF) | payer BC ==
[2022-07-01 15:19] LABS: MAGNESIUM LEVEL 1.9 MG/DL (1.8-2.4)
[2022-07-01 15:20] LABS: FOLATE 10.4 NG/ML (>5.4)
== END ==
LOC: M SFHCADAM 07:48
PROVIDERS: ATTEND Physician Assistant Medical
DX: G43.109 Migraine with aura, not intractable, without status migrainosus (principal)

== ENCOUNTER 2023-07-18 04:37 | Emergency (ER) | payer BC, OTHER ==
[2023-07-18] MEDS: ONDANSETRON 4MG 2ML VIAL IV ONE (05:14)
[2023-07-18 05:33] LABS: BASO # 0.1 10^3/uL (0.0-0.2); BASO % 0.8 % (0.0-1.0); EOS # 0.1 10^3/uL (0.0-0.5); EOS % 1.1 % (0.0-3.0); HEMATOCRIT 40.7 % (36.0-47.0); HEMOGLOBIN 14.5 g/dl (12.0-15.5); LYMPH # 1.5 10^3/uL (1.5-5.0); LYMPH % 14.7 % (24.0-44.0); MEAN CORPUSCULAR HEMOGLOBIN 29.9 pg (27.0-33.0); MEAN CORPUSCULAR HGB CONC 35.6 g/dl (32.0-36.5); MEAN CORPUSCULAR VOLUME 83.9 fl (80.0-96.0); MONO # 0.7 10^3/uL (0.0-0.8); MONO % 6.8 % (2.0-8.0); NEUTROPHILS % 76.2 % (36.0-66.0); PLATELET COUNT, AUTOMATED 274 10^3/uL (150-450); RED BLOOD COUNT 4.85 10^6/uL (4.00-5.40); WHITE BLOOD COUNT 10.4 10^3/uL (4.0-10.0)
[2023-07-18 05:54] LABS: CK-MB VALUE MASS < 1.0 NG/ML (<3.6)
[2023-07-18 05:56] LABS: BLOOD UREA NITROGEN 13 MG/DL (9-23); CALCIUM LEVEL 8.8 MG/DL (8.5-10.1); CARBON DIOXIDE LEVEL 20 MMOL/L (20-31); CHLORIDE LEVEL 111 MMOL/L (98-107); CREATININE FOR GFR 0.86 MG/DL (0.55-1.30); GLOMERULAR FILTRATION RATE > 60.0 (>60); GLUCOSE, FASTING 94 MG/DL (60-100); POTASSIUM SERUM 3.2 MMOL/L (3.5-5.1); SODIUM LEVEL 142 MMOL/L (136-145)
[2023-07-18 05:58] LABS: CPK CREATINE PHOSPHOKINASE 155 U/L (34-145); MB/CK RELATIVE INDEX 0.64 (< OR =4)
[2023-07-18] MEDS: POTASSIUM CHLORIDE 10MEQ SR TABLET PO ONE (07:33)
[2023-07-18 08:02] LABS: HCG, SERUM QUALITATIVE NEGATIVE (NEGATIVE)
[2023-07-18] MEDS: METOCLOPRAMIDE INJ 10MG/2ML VIAL IV ONE (08:02)
[2023-07-18 08:18] VITALS: BP 102/72; TEMP 96.7; O2SAT 98
[2023-07-18] MEDS ORDERED: ONDA4TAB6 PO (09:27)
== END 2023-07-18 09:49 | disposition home or self-care (01) ==
LOC: M ED 04:37
DX: E87.6 Hypokalemia (principal); R11.0 Nausea; Z88.1 Allergy status to other antibiotic agents; Z79.83 Long term (current) use of bisphosphonates
CPT/HCPCS: 71045; 80048; 82550; 82553; 84484; 84703; 85025; 85379; 93005; 93041; 94760; 96374; 96375; 99284; J2405; J2765

== ENCOUNTER → 2023-07-28 | Outpatient (REF) | payer OTHER ==
[~2023-07-28] MED LIST changes: +ONDA-282 PO
[2023-07-28 18:37] LABS: HEMATOCRIT 43.2 % (36.0-47.0); HEMOGLOBIN 14.4 g/dl (12.0-15.5); MEAN CORPUSCULAR HEMOGLOBIN 29.6 pg (27.0-33.0); MEAN CORPUSCULAR HGB CONC 33.3 g/dl (32.0-36.5); MEAN CORPUSCULAR VOLUME 88.7 fl (80.0-96.0); PLATELET COUNT, AUTOMATED 258 10^3/uL (150-450); RED BLOOD COUNT 4.87 10^6/uL (4.00-5.40); WHITE BLOOD COUNT 6.1 10^3/uL (4.0-10.0)
[2023-07-28 19:16] LABS: ALBUMIN 4.2 G/DL (3.2-5.2); ALKALINE PHOSPHATASE 84 U/L (46-116); ALT/SGPT 14 U/L (7.0-40); AST/SGOT < 8 U/L (<34); BLOOD UREA NITROGEN 10 MG/DL (9-23); CALCIUM LEVEL 9.7 MG/DL (8.5-10.1); CARBON DIOXIDE LEVEL 28 MMOL/L (20-31); CHLORIDE LEVEL 106 MMOL/L (98-107); CHOLESTEROL LEVEL 138 MG/DL (<200); CHOLESTEROL RISK RATIO 3.05 (<5); CREATININE FOR GFR 0.77 MG/DL (0.55-1.30); GLOMERULAR FILTRATION RATE > 60.0 (>60); GLUCOSE, FASTING 87 MG/DL (60-100); HDL CHOLESTEROL 45.1 MG/DL (>40); LDL CHOLESTEROL 82.7 MG/DL (<100); NON-HDL-C 92.9 MG/DL; SODIUM LEVEL 140 MMOL/L (136-145); TOTAL PROTEIN 6.8 G/DL (5.7-8.2); TRIGLYCERIDES LEVEL 51 MG/DL (<150)
== END ==
LOC: M SFHCADAM 11:29
PROVIDERS: ATTEND Physician Assistant
DX: L70.0 Acne vulgaris (principal)

== ENCOUNTER 2023-09-26 | Emergency (ER) | payer OTHER ==
[~2023-09-26] VITALS: Ht 157.5 cm; Wt 59.3 kg
[2023-09-26 02:28] LABS: BASO # 0.1 10^3/uL (0.0-0.2); BASO % 0.5 % (0.0-1.0); EOS % 0.1 % (0.0-3.0); HEMATOCRIT 44.7 % (36.0-47.0); HEMOGLOBIN 15.6 g/dl (12.0-15.5); LYMPH # 1.3 10^3/uL (1.5-5.0); LYMPH % 12.1 % (24.0-44.0); MEAN CORPUSCULAR HEMOGLOBIN 29.5 pg (27.0-33.0); MEAN CORPUSCULAR HGB CONC 34.9 g/dl (32.0-36.5); MEAN CORPUSCULAR VOLUME 84.5 fl (80.0-96.0); MONO # 0.3 10^3/uL (0.0-0.8); MONO % 2.7 % (2.0-8.0); NEUTROPHILS # 8.7 10^3/uL (1.5-8.5); NEUTROPHILS % 84.3 % (36.0-66.0); PLATELET COUNT, AUTOMATED 306 10^3/uL (150-450); RED BLOOD COUNT 5.29 10^6/uL (4.00-5.40); WHITE BLOOD COUNT 10.3 10^3/uL (4.0-10.0)
[2023-09-26 02:56] LABS: CK-MB VALUE MASS < 1.0 NG/ML (<3.6)
[2023-09-26 03:02] LABS: CPK CREATINE PHOSPHOKINASE 64 U/L (34-145); MB/CK RELATIVE INDEX 1.56 (< OR =4)
[2023-09-26 03:03] VITALS: BP 116/79; TEMP 98.5; O2SAT 100
[2023-09-26 04:55] LABS: BLOOD UREA NITROGEN 6 MG/DL (9-23); CALCIUM LEVEL 9.6 MG/DL (8.5-10.1); CARBON DIOXIDE LEVEL 21 MMOL/L (20-31); CHLORIDE LEVEL 107 MMOL/L (98-107); CREATININE FOR GFR 0.67 MG/DL (0.55-1.30); GLOMERULAR FILTRATION RATE > 60.0 (>60); GLUCOSE, FASTING 92 MG/DL (60-100); POTASSIUM SERUM 3.4 MMOL/L (3.5-5.1); SODIUM LEVEL 140 MMOL/L (136-145)
== END 2023-09-26 03:08 | disposition left against medical advice (07) ==
LOC: M ED
DX: Z53.21 Procedure and treatment not carried out due to patient leaving prior to being seen by health care provider (principal)

== ENCOUNTER → 2023-09-26 | Outpatient (REF) | payer OTHER ==
[2023-09-26 15:26] LABS: BASO % 0.4 % (0.0-1.0); EOS % 0.1 % (0.0-3.0); HEMATOCRIT 47.2 % (36.0-47.0); HEMOGLOBIN 16.3 g/dl (12.0-15.5); LYMPH % 17.8 % (24.0-44.0); MEAN CORPUSCULAR HEMOGLOBIN 29.6 pg (27.0-33.0); MEAN CORPUSCULAR HGB CONC 34.5 g/dl (32.0-36.5); MEAN CORPUSCULAR VOLUME 85.8 fl (80.0-96.0); MONO # 0.7 10^3/uL (0.0-0.8); NEUTROPHILS # 8.6 10^3/uL (1.5-8.5); NEUTROPHILS % 75.3 % (36.0-66.0); PLATELET COUNT, AUTOMATED 358 10^3/uL (150-450); WHITE BLOOD COUNT 11.4 10^3/uL (4.0-10.0)
[2023-09-26 15:43] LABS: ALBUMIN 4.7 G/DL (3.2-5.2); ALKALINE PHOSPHATASE 107 U/L (46-116); ALT/SGPT 16 U/L (7.0-40); AST/SGOT 16 U/L (<34); BILIRUBIN,TOTAL 0.8 MG/DL (0.3-1.2); BLOOD UREA NITROGEN 7 MG/DL (9-23); CALCIUM LEVEL 9.9 MG/DL (8.5-10.1); CARBON DIOXIDE LEVEL 24 MMOL/L (20-31); CHLORIDE LEVEL 105 MMOL/L (98-107); CREATININE FOR GFR 0.68 MG/DL (0.55-1.30); FREE T4 1.49 NG/DL (0.89-1.76); GLOMERULAR FILTRATION RATE > 60.0 (>60); GLUCOSE, FASTING 82 MG/DL (60-100); MAGNESIUM LEVEL 2.1 MG/DL (1.8-2.4); POTASSIUM SERUM 4.1 MMOL/L (3.5-5.1); SODIUM LEVEL 138 MMOL/L (136-145); THYROID STIMULATING HORMONE 1.103 uIU/ML (0.55-4.78); TOTAL PROTEIN 7.6 G/DL (5.7-8.2)
== END ==
LOC: M SFHCADAM 10:21
PROVIDERS: ATTEND Physician Assistant
DX: R20.2 Paresthesia of skin (principal); R11.2 Nausea with vomiting, unspecified; E87.6 Hypokalemia

== ENCOUNTER → 2023-09-28 | Outpatient (CLI) | payer OTHER | LOC: M PLAIMG 13:33 | PROVIDERS: ATTEND Physician Assistant | DX: G43.109 Migraine with aura, not intractable, without status migrainosus (principal); R20.2 Paresthesia of skin ==

== ENCOUNTER → 2023-10-03 | Outpatient (REF) | payer OTHER ==
[~2023-10-03] MED LIST changes: +MIRE1IUD IY
[2023-10-03 18:54] LABS: FERRITIN 111.6 NG/ML (7.3-270.7)
[2023-10-03 18:55] LABS: FOLATE 14.1 NG/ML (>5.4)
== END ==
LOC: M SFHCADAM 11:14
PROVIDERS: ATTEND Physician Assistant Medical
DX: R20.0 Anesthesia of skin (principal); R63.4 Abnormal weight loss; R00.0 Tachycardia, unspecified; F43.9 Reaction to severe stress, unspecified; R11.2 Nausea with vomiting, unspecified; R19.5 Other fecal abnormalities

== ENCOUNTER 2023-10-05 01:54 | Emergency (ER) | payer OTHER ==
[~2023-10-05] VITALS: Ht 157.5 cm; Wt 54.0 kg
[~2023-10-05 01:54] MED LIST changes: -MIRE1IUD IY
[2023-10-05 02:38] LABS: BASO # 0.1 10^3/uL (0.0-0.2); BASO % 0.9 % (0.0-1.0); EOS # 0.1 10^3/uL (0.0-0.5); EOS % 0.9 % (0.0-3.0); HEMATOCRIT 41.4 % (36.0-47.0); LYMPH # 1.7 10^3/uL (1.5-5.0); LYMPH % 21.2 % (24.0-44.0); MEAN CORPUSCULAR HEMOGLOBIN 29.7 pg (27.0-33.0); MEAN CORPUSCULAR HGB CONC 36.2 g/dl (32.0-36.5); MONO # 0.6 10^3/uL (0.0-0.8); NEUTROPHILS # 5.4 10^3/uL (1.5-8.5); NEUTROPHILS % 68.9 % (36.0-66.0); PLATELET COUNT, AUTOMATED 298 10^3/uL (150-450); RED BLOOD COUNT 5.05 10^6/uL (4.00-5.40); WHITE BLOOD COUNT 7.8 10^3/uL (4.0-10.0)
[2023-10-05] MEDS ORDERED: MIRE1IUD IY (02:55)
[2023-10-05 03:00] VITALS: TEMP 97.9
[2023-10-05 03:01] LABS: BLOOD UREA NITROGEN 5 MG/DL (9-23); CALCIUM LEVEL 9.2 MG/DL (8.5-10.1); CARBON DIOXIDE LEVEL 22 MMOL/L (20-31); CHLORIDE LEVEL 107 MMOL/L (98-107); CK-MB VALUE MASS < 1.0 NG/ML (<3.6); CREATININE FOR GFR 0.65 MG/DL (0.55-1.30); GLOMERULAR FILTRATION RATE > 60.0 (>60); GLUCOSE, FASTING 90 MG/DL (60-100); POTASSIUM SERUM 3.4 MMOL/L (3.5-5.1); SODIUM LEVEL 137 MMOL/L (136-145)
[2023-10-05 03:03] LABS: CPK CREATINE PHOSPHOKINASE 64 U/L (34-145); MB/CK RELATIVE INDEX 1.56 (< OR =4)
[2023-10-05 03:46] LABS: MAGNESIUM LEVEL 1.8 MG/DL (1.8-2.4)
[2023-10-05 03:48] LABS: VENOUS BASE EXCESS 0.7 (-2.0-2.0); VENOUS HCO3 24.1 MMOL/L (23.0-27.0); VENOUS O2 SATURATION 88.9 % (60.0-80.0); VENOUS PARTIAL PRESSURE CO2 35.1 mmHg (38.0-50.0); VENOUS PARTIAL PRESSURE O2 52.1 mmHg (30.0-50.0); VENOUS PH 7.454 UNITS (7.330-7.430); VENOUS STANDARD HCO3 24.9 MMOL/L; VENOUS TOTAL CO2 25.1 MMOL/L (24.0-28.0)
[2023-10-05] MEDS: METOCLOPRAMIDE INJ 10MG/2ML VIAL IV ONE (04:00)
[2023-10-05 04:16] LABS: CPK CREATINE PHOSPHOKINASE 61 U/L (34-145)
[2023-10-05 04:17] LABS: CK-MB VALUE MASS < 1.0 NG/ML (<3.6); MB/CK RELATIVE INDEX 1.63 (< OR =4)
[2023-10-05 06:04] VITALS: BP 101/64; O2SAT 99
== END 2023-10-05 06:06 | disposition home or self-care (01) ==
LOC: M ED 01:54
DX: R07.9 Chest pain, unspecified (principal); F41.9 Anxiety disorder, unspecified; R00.0 Tachycardia, unspecified; G43.909 Migraine, unspecified, not intractable, without status migrainosus; F10.90 Alcohol use, unspecified, uncomplicated; Z88.0 Allergy status to penicillin; Z79.83 Long term (current) use of bisphosphonates; Z79.899 Other long term (current) drug therapy
CPT/HCPCS: 71045; 80048; 82550; 82553; 82803; 83735; 84484; 85025; 93005; 93041; 94760; 96374; 99284; J2765

== ENCOUNTER → 2024-12-11 | Outpatient (REF) | payer OTHER, BC ==
[~2024-12-11] MED LIST changes: +MIRE1IUD IY
[2024-12-11 14:16] LABS: BASO # 0.1 10^3/uL (0.0-0.2); BASO % 1.4 % (0.0-1.0); EOS # 0.3 10^3/uL (0.0-0.5); EOS % 4.1 % (0.0-3.0); LYMPH # 1.8 10^3/uL (1.5-5.0); LYMPH % 27.1 % (24.0-44.0); MONO # 0.6 10^3/uL (0.0-0.8); MONO % 9.2 % (2.0-8.0); NEUTROPHILS # 3.8 10^3/uL (1.5-8.5); NEUTROPHILS % 57.9 % (36.0-66.0); PLATELET COUNT, AUTOMATED 259 10^3/uL (150-450)
[2024-12-11 14:20] LABS: FREE T4 1.27 NG/DL (0.89-1.76)
[2024-12-11 14:46] LABS: ALT/SGPT 12 U/L (7.0-40); AST/SGOT 14 U/L (<34); CALCIUM LEVEL 9.3 MG/DL (8.5-10.1); CARBON DIOXIDE LEVEL 29 MMOL/L (20-31); CHLORIDE LEVEL 104 MMOL/L (98-107); CHOLESTEROL LEVEL 144 MG/DL (<200); CHOLESTEROL RISK RATIO 3.00 (<5); CREATININE FOR GFR 0.81 MG/DL (0.55-1.30); GLOMERULAR FILTRATION RATE > 90.0 (>60); LDL CHOLESTEROL 84.6 MG/DL (<100); NON-HDL-C 96.0 MG/DL; POTASSIUM SERUM 4.2 MMOL/L (3.5-5.1); SODIUM LEVEL 141 MMOL/L (136-145); TRIGLYCERIDES LEVEL 57 MG/DL (<150)
== END ==
LOC: M LABDRWAD 12:55
PROVIDERS: ATTEND Nurse Practitioner Family
DX: Z76.89 Persons encountering health services in other specified circumstances (principal); G43.909 Migraine, unspecified, not intractable, without status migrainosus; Z13.6 Encounter for screening for cardiovascular disorders